=== PATIENT | male | born 1995 | race Caucasian/White ===

== ENCOUNTER 2021-08-25 15:33 | Emergency (ER) | payer SELFPAY ==
[~2021-08-25] VITALS: Ht 182.9 cm; Wt 102.1 kg
[2021-08-25] MEDS ORDERED: CLONAZEPAM 0.5 MG TAB PO ONE ×2 (16:00→16:30)
== END 2021-08-25 16:36 | disposition home or self-care (01) ==
LOC: ER 15:43
DX: F41.9 Anxiety disorder, unspecified (principal); F32.A Depression, unspecified
CPT/HCPCS: 99283